=== PATIENT | male | born 1935 | race Hispanic/Latino ===

== ENCOUNTER 2020-09-16 17:01 | Observation (INO) | payer MEDICARE, OTHER ==
[~2020-09-16] VITALS: Ht 157.5 cm; Wt 43.1 kg
--- OUTSIDE RECORDS SUMMARY | 2020-09-16 17:27 | XMS REPORT | Continuity of Care Document ---
Author Author [facility] t Organization [facility] Address [address] [place] [address] Phone Unavailable Care Team Providers Care Scallop Dredger Name Role Phone Unavailable Unavailable Payers Payer Name Policy Type Policy Number Effective Date Expiration Date S ource Problems This patient has no known problems. Allergies, Adverse Reactions, Alerts Allergy Name Allergy Type Status Severity Reaction(s) Onset Date Inacti ve Date Treating Clinician Comments Source No Known Allergies DA Active U 2020-07-29 00:00:00 [facility] No Known Allergies DA Active U 2019-11-28 00:00:00 [facility] Medications This patient has no known medications. Procedures This patient has no known procedures. Results Test Description Test Time Test Comments Results Result Comments Source BASIC METABOLIC PANEL 2020-08-02 05:55:00 Test Item SODIUM (test code = NA) 140 mmol/L 136-145 N POTASSIUM (test code = K) 4.2 mmol/L 3.5-5.1 N CHLORIDE (test code = CL) 109.0 mmol/L 98-107 H CARBON DIOXIDE (test code = CO2) 22.0 mmol/L 21-32 N ANION GAP (test code = GAP) 13.2 10-20 N GLUCOSE (test code = GLU) 92 mg/dL 74-106 N BLOOD UREA NITROGEN (test code = BUN) 15 mg/dL 7-18 N GLOMERULAR FILTRATION RATE (test code = GFR) > 60 mL/min >=60 Estimated GFR by using Modified MDRD formula.Chronic kidney disease is defined as either kidney damageor GFR <60 mL/min/1.73 m2 for >3 months. CREATININE (test code = CREAT) 0.90 mg/dL 0.7-1.3 N BUN/CREATININE RATIO (test code = BUN/CREA) 16.7 10-20 N CALCIUM (test code = CA) 8.2 mg/dL 8.5-10.1 L BASIC METABOLIC [id number] 05:47:00* Test Item Value Reference Range Interpretation Comments SODIUM (test code = NA) 140 mmol/L 136-145 N POTASSIUM (test code = K) 4.2 mmol/L 3.5-5.1 N CHLORIDE (test code = CL) 109.0 mmol/L 98-107 H CARBON DIOXIDE (test code = CO2) mmol/L 21-32 ANION GAP (test code = GAP) 10-20 GLUCOSE (test code = GLU) mg/dL 74-106 BLOOD UREA NITROGEN (test code = BUN) mg/dL 7-18 GLOMERULAR FILTRATION RATE (test code = GFR) mL/min >=60 CREATININE (test code = CREAT) mg/dL 0.7-1.3 BUN/CREATININE RATIO (test code = BUN/CREA) 10-20 CALCIUM (test code = CA) mg/dL 8.5-10.1 CBC W/AUTO [id number] 05:33:00* Test Item Value Reference Range Interpretation Comments WHITE BLOOD CELL (test code = WBC) 7.0 K/mm3 4.5-12.5 N RED BLOOD CELL (test code = RBC) 3.49 mill/mm3 4.0-5.8 L HEMOGLOBIN (test code = HGB) 10.5 gram/dL 13.0-17.5 L HEMATOCRIT (test code = HCT) 33.0 % 42.0-52.0 L MEAN CELL VOLUME (test code = MCV) 94.6 fL 80-98 N MEAN CELL HGB (test code = MCH) 30.1 picogram 27.0-33.0 N MEAN CELL HGB CONCETRATION (test code = MCHC) 31.8 gram/dL 33.0-36. 0 L RED CELL DISTRIBUTION WIDTH (test code = RDW) 14.4 % 11.6-16. 2 N RED CELL DISTRIBUTION WIDTH SD (test code = RDW-SD) 49.7 fL 37 .0-51.0 N PLATELET COUNT (test code = PLT) 437 K/mm3 150-450 N MEAN PLATELET VOLUME (test code = MPV) 9.9 fL 6.7-11.0 N NEUTROPHIL % (test code = NT%) 66.8 % 39.0-69.0 N IMMATURE GRANULOCYTE % (test code = IG%) 0.3 % 0.0-5.0 N LYMPHOCYTE % (test code = LY%) 18.0 % 25.0-55.0 L MONOCYTE % (test code = MO%) 10.1 % 0.0-10.0 H EOSINOPHIL % (test code = EO%) 4.4 % 0.0-5.0 N BASOPHIL % (test code = BA%) 0.4 % 0.0-1.0 N NUCLEATED RBC % (test code = NRBC%) 0.0 % 0-0 N NEUTROPHIL # (test code = NT#) 4.67 K/mm3 1.8-7.7 N IMMATURE GRANULOCYTE # (test code = IG#) 0.02 x10 3/uL 0-0.03 N LYMPHOCYTE # (test code = LY#) 1.26 K/mm3 1.0-5.0 N MONOCYTE # (test code = MO#) 0.71 K/mm3 0-0.8 N EOSINOPHIL # (test code = EO#) 0.31 K/mm3 0.0-0.5 N BASOPHIL # (test code = BA#) 0.03 K/mm3 0.0-0.2 N NUCLEATED RBC # (test code = NRBC#) 0.00 K/mm3 0.0-0.1 N MANUAL DIFF REQUIRED (test code = MDIFF) NO [id number] 09:47:00* Test Item Value Reference Range Interpretation Comments POTASSIUM (test code = K) 5.1 mmol/L 3.5-5.1 N SPECIMEN COMMENTS: STAT PLEASEBASIC METABOLIC [id number] 08:51:00* Test Item Value Reference Range Interpretation Comments SODIUM (test code = NA) 143 mmol/L 136-145 N POTASSIUM (test code = K) 6.2 mmol/L 3.5-5.1 Alcira luu called to [id number] by PATT 07/30/20 0850Critical results verified and read back by Nurse? Y CHLORIDE (test code = CL) 112.0 mmol/L 98-107 H CARBON DIOXIDE (test code = CO2) 29.0 mmol/L 21-32 N ANION GAP (test code = GAP) 8.2 10-20 L GLUCOSE (test code = GLU) 89 mg/dL 74-106 N BLOOD UREA NITROGEN (test code = BUN) 24 mg/dL 7-18 H GLOMERULAR FILTRATION RATE (test code = GFR) > 60 mL/min >=60 Estimated GFR by using Modified MDRD formula.Chronic kidney disease is defined as either kidney damageor GFR <60 mL/min/1.73 m2 for >3 months. CREATININE (test code = CREAT) 1.10 mg/dL 0.7-1.3 N BUN/CREATININE RATIO (test code = BUN/CREA) 21.8 10-20 H CALCIUM (test code = CA) 7.9 mg/dL 8.5-10.1 L THYROID PROFILE [id number] 08:44:00* Test Item Value Reference Range Interpretation Comments T3 UPTAKE (test code = T3UP) 30.0 % 30.0-40.0 N T4 (THYROXINE) (test code = T4) 4.7 ug/dL 4.5-13.9 N T7 (FREE THYROXINE INDEX) (test code = T7) 1.41 FTI 1.3-5.1 N THYROID STIMULATING HORMONE (test code = TSH) 43.100 uIU/mL 0.36-3. 74 H TSH REFERENCE RANGES: EUTHYROID: 0.35 - 4.3 mIU/mL HYPO : > 5.5 mIU/mL HYPER : < 0.35 mIU/mL - CT CHEST W/O [id number] 08:22:00 Name: PABLO OTT [facility] : 1935 Age/S: 84 / M [address] [facility]: [id number] Loc: [place] [address] Phys: Galen Long MD Acct: [id number] Dis Date: Status: ADM IN PHONE #: [phone] Exam Date: 07/29/2020 2320 FAX #: [phone] Reason: PNEUMONIA EXAMS: CPT CODE: [id number] CT CHEST W/O CONTRAST 18002 REASON FOR EXAM: PNEUMONIA EXAM ORDER DATE: 07/29/2020 11:10 PM Ordering M.D.: Galen Maher MD PROCEDURE: - CT CHEST W/O CONTRAST Comparison:Chest x- ray earlier the same evening Axial CT images of the chest were obtained without IV contrast. Reconstructed sagittal and coronal images of the chest were provided for interpretation. Dose reduction techniques were applied. FINDINGS: The absence of IV contrast limits the sensitivity of this exam for detecting soft tissue pathology and differentiating atelectasis from consolidations. Visualized neck: Grossly normal Airways, Lungs and Pleura: Consolidative and groundglass airspace opacities are seen throughout the right lung and are also present in the lingula and in the dependent left lower lobe likely represent a multifocal pneumonia. There is also a small right-sided pleural effusion Heart, great vessels, pulmonary vessels, mediastinum: Atherosclerotic calcifications are seen throughout the thoracic aorta and throughout all 3 coronary arteries Lymph nodes: No axillary, internal mammary, or mediastinal adenopathy. Hilar lymph nodes are suboptimally evaluated in the absence of IV contrast Musculoskeletal/chest wall: There are degenerative changes in the spine Visualized upper abdomen: Small hiatal hernia is present IMPRESSION: PAGE 1 Signed Report (CONTINUED) Name: PABLO OTT [facility] : 1935 Age/S: 84 / M [address] [facility] Unit #: [id number] Loc: [place] [address] Phys: Galen Long MD Acct: [id number] Dis Date: Status: ADM IN PHONE #: [phone] Exam Date: 07/29/2020 5107 FAX #: [phone] Reason: PNEUMONIA EXAMS: CPT CODE: [id number] CT CHEST W/O CONTRAST 57968 <Continued> Findings a multifocal pneumonia involving both lungs, significantly worse on the right side. There is also a small right-sided pleural effusion. Location: [facility] at 0822 Reported and signed by: Alex Wallace MD CC: Galen Long Technologist:WELLINGTON LEVY RT(R)(CT) CTDI: DLP: Trnscb Date/Time: 07/30/2020 (0822) t.[email or web address].RR31 Orig Print D/T: S: 07/30/2020 (1719) PAGE 2 Signed Report COVID 19 Asymptomatic IH [id number] 05:43:00* Test Item Value Reference Range Interpretation Comments COVID 19 Asymptomatic IH AG (test code = COVNONPUIAG) NEGATIVE B-TYPE NATRIURETIC [id number] 22:35:00* Test Item Value Reference Range Interpretation Comments B-TYPE NATRIURETIC PEPTIDE (test code = BNP) 221.30 pgram/mL 0-100 H BASIC METABOLIC [id number] 22:34:00* Test Item Value Reference Range Interpretation Comments SODIUM (test code = NA) 142 mmol/L 136-145 N POTASSIUM (test code = K) 4.4 mmol/L 3.5-5.1 N CHLORIDE (test code = CL) 110.0 mmol/L 98-107 H CARBON DIOXIDE (test code = CO2) 31.0 mmol/L 21-32 N ANION GAP (test code = GAP) 5.4 10-20 L GLUCOSE (test code = GLU) 91 mg/dL 74-106 N BLOOD UREA NITROGEN (test code = BUN) 21 mg/dL 7-18 H GLOMERULAR FILTRATION RATE (test code = GFR) 48 mL/min >=60 Estimated GFR by using Modified MDRD formula.Chronic kidney disease is defined as either kidney damageor GFR <60 mL/min/1.73 m2 for >3 months. CREATININE (test code = CREAT) 1.40 mg/dL 0.7-1.3 H BUN/CREATININE RATIO (test code = BUN/CREA) 14.9 10-20 N CALCIUM (test code = CA) 7.9 mg/dL 8.5-10.1 L [id number] 22:34:00* Test Item Value Reference Range Interpretation Comments TROPONIN-I (test code = TROPI) <0.015 ng/mL 0-0.045 N BASIC METABOLIC [id number] 22:25:00* Test Item Value Reference Range Interpretation Comments SODIUM (test code = NA) 142 mmol/L 136-145 N POTASSIUM (test code = K) 4.4 mmol/L 3.5-5.1 N CHLORIDE (test code = CL) 110.0 mmol/L 98-107 H CARBON DIOXIDE (test code = CO2) mmol/L 21-32 ANION GAP (test code = GAP) 10-20 GLUCOSE (test code = GLU) mg/dL 74-106 BLOOD UREA NITROGEN (test code = BUN) mg/dL 7-18 GLOMERULAR FILTRATION RATE (test code = GFR) mL/min >=60 CREATININE (test code = CREAT) mg/dL 0.7-1.3 BUN/CREATININE RATIO (test code = BUN/CREA) 10-20 CALCIUM (test code = CA) mg/dL 8.5-10.1 [id number] 22:25:00* Test Item Value Reference Range Interpretation Comments TROPONIN-I (test code = TROPI) ng/mL 0-0.045 CBC W/O [id number] 22:06:00* Test Item Value Reference Range Interpretation Comments WHITE BLOOD CELL (test code = WBC) 7.9 K/mm3 4.5-12.5 N RED BLOOD CELL (test code = RBC) 3.12 mill/mm3 4.0-5.8 L HEMOGLOBIN (test code = HGB) 9.3 gram/dL 13.0-17.5 L HEMATOCRIT (test code = HCT) 30.0 % 42.0-52.0 L MEAN CELL VOLUME (test code = MCV) 96.2 fL 80-98 N MEAN CELL HGB (test code = MCH) 29.8 picogram 27.0-33.0 N MEAN CELL HGB CONCETRATION (test code = MCHC) 31.0 gram/dL 33.0-36. 0 L RED CELL DISTRIBUTION WIDTH (test code = RDW) 14.0 % 11.6-16. 2 N PLATELET COUNT (test code = PLT) 371 K/mm3 150-450 N MEAN PLATELET VOLUME (test code = MPV) 9.3 fL 6.7-11.0 N - XR CHEST 1 [id number] 21:44:00 FAX: Jareth Orozco MD [phone] [place]: [address]: ADM Name: PABLO BURROWS [facility] : [birth year] Age/S: 84/M [address] Unit #: [id number] Loc: [place], [place] [address] Phys: Jareth Orozco MD Acct: [id number] Dis Date: Status: ADM IN PHONE #: [phone] Exam Date: 07/29/20202132 FAX #: [phone] Reason: Shortness of Breath EXAMS: CPT CODE: [id number] XR CHEST 1 V 28745 EXAM: Chest x-ray, one view; INFORMATION: Shortness of breath, pneumonia; FINDINGS: There are infiltrative groundglass densities in the medial basilar portion of the right lower lobe. The remainder the lungs is clear; no effusions; no pneumothorax. Heart size within upper limits of normal. Aortic calcifications. IMPRESSION: Mild infiltrative changes in the right lower lobe. Location code: [facility] Electronically Signed by Jeramy Anguiano on 1 at 2143 Reported and signed by: Brent Anguiano M.D. CC: Jareth Orozco MD Technologist: Sarah Wei RT(R) Trnscrd Date/Time/By: 07/29/2020 (2143) : By: KamGRW Orig Print D/T: S: 07/29/2020 (2146) PAGE 1 Signed Report B-TYPE NATRIURETIC PEPTIDE 2020-07-29 13:59:00* Test Item Value Reference Range Interpretation Comments B-TYPE NATRIURETIC PEPTIDE (test code = BNP) 184.03 pgram/mL 0-100 H COMPREHENSIVE METABOLIC [id number] 13:55:00* Test Item Value Reference Range Interpretation Comments SODIUM (test code = NA) 140 mmol/L 136-145 N POTASSIUM (test code = K) 4.4 mmol/L 3.5-5.1 N CHLORIDE (test code = CL) 106.0 mmol/L 98-107 N CARBON DIOXIDE (test code = CO2) 28.0 mmol/L 21-32 N ANION GAP (test code = GAP) 10.4 10-20 N GLUCOSE (test code = GLU) 82 mg/dL 74-106 N BLOOD UREA NITROGEN (test code = BUN) 16 mg/dL 7-18 N GLOMERULAR FILTRATION RATE (test code = GFR) > 60 mL/min >=60 Estimated GFR by using Modified MDRD formula.Chronic kidney disease is defined as either kidney damageor GFR <60 mL/min/1.73 m2 for >3 months. CREATININE (test code = CREAT) 1.00 mg/dL 0.7-1.3 N BUN/CREATININE RATIO (test code = BUN/CREA) 16.0 10-20 N TOTAL PROTEIN (test code = PROT) 7.4 gram/dL 6.4-8.2 N ALBUMIN (test code = ALB) 2.8 g/dL 3.4-5.0 L GLOBULIN (test code = GLOB) 4.6 gram/dL 2.7-4.2 H ALBUMIN/GLOBULIN RATIO (test code = A/G) 0.6 0.75-1.50 L CALCIUM (test code = CA) 8.0 mg/dL 8.5-10.1 L BILIRUBIN TOTAL (test code = BILT) 0.40 mg/dL 0.0-1.0 N SGOT/AST (test code = AST) 24 IUnit/L 15-37 N SGPT/ALT (test code = ALT) 16 IUnit/L 12-78 N ALKALINE PHOSPHATASE TOTAL (test code = ALKP) 113 IUnit/L 45-117 N Note change in reference range due to change in reagent. THYROID PROFILE [id number] 13:55:00* Test Item Value Reference Range Interpretation Comments T3 UPTAKE (test code = T3UP) 29.0 % 30.0-40.0 L T4 (THYROXINE) (test code = T4) 5.6 ug/dL 4.5-13.9 N T7 (FREE THYROXINE INDEX) (test code = T7) 1.62 FTI 1.3-5.1 N THYROID STIMULATING HORMONE (test code = TSH) 42.000 uIU/mL 0.36-3. 74 H TSH REFERENCE RANGES: EUTHYROID: 0.35 - 4.3 mIU/mL HYPO : > 5.5 mIU/mL HYPER : < 0.35 mIU/mL CBC W/AUTO [id number] 13:05:00* Test Item Value Reference Range Interpretation Comments WHITE BLOOD CELL (test code = WBC) 6.5 K/mm3 4.5-12.5 N RED BLOOD CELL (test code = RBC) 3.51 mill/mm3 4.0-5.8 L HEMOGLOBIN (test code = HGB) 10.5 gram/dL 13.0-17.5 L HEMATOCRIT (test code = HCT) 33.8 % 42.0-52.0 L MEAN CELL VOLUME (test code = MCV) 96.3 fL 80-98 N MEAN CELL HGB (test code = MCH) 29.9 picogram 27.0-33.0 N MEAN CELL HGB CONCETRATION (test code = MCHC) 31.1 gram/dL 33.0-36. 0 L RED CELL DISTRIBUTION WIDTH (test code = RDW) 13.9 % 11.6-16. 2 N RED CELL DISTRIBUTION WIDTH SD (test code = RDW-SD) 49.0 fL 37 .0-51.0 N PLATELET COUNT (test code = PLT) 405 K/mm3 150-450 N MEAN PLATELET VOLUME (test code = MPV) 9.6 fL 6.7-11.0 N NEUTROPHIL % (test code = NT%) 70.3 % 39.0-69.0 H IMMATURE GRANULOCYTE % (test code = IG%) 0.2 % 0.0-5.0 N LYMPHOCYTE % (test code = LY%) 16.0 % 25.0-55.0 L MONOCYTE % (test code = MO%) 10.1 % 0.0-10.0 H EOSINOPHIL % (test code = EO%) 2.9 % 0.0-5.0 N BASOPHIL % (test code = BA%) 0.5 % 0.0-1.0 N NUCLEATED RBC % (test code = NRBC%) 0.0 % 0-0 N NEUTROPHIL # (test code = NT#) 4.58 K/mm3 1.8-7.7 N IMMATURE GRANULOCYTE # (test code = IG#) 0.01 x10 3/uL 0-0.03 N LYMPHOCYTE # (test code = LY#) 1.04 K/mm3 1.0-5.0 N MONOCYTE # (test code = MO#) 0.66 K/mm3 0-0.8 N EOSINOPHIL # (test code = EO#) 0.19 K/mm3 0.0-0.5 N BASOPHIL # (test code = BA#) 0.03 K/mm3 0.0-0.2 N NUCLEATED RBC # (test code = NRBC#) 0.00 K/mm3 0.0-0.1 N MANUAL DIFF REQUIRED (test code = MDIFF) NO - XR CHEST 2 [id number] 10:54:00 [place]: O St: REG Name: PABLO BURROWS [facility] : [birth year] Age/S: 84/M [address] [facility] Unit #: [id number] Loc: [place] [address] Phys: Cher Arevalo MD Acct: [id number] Dis Date: Status: REG CLI PHONE #: [phone] Exam Date: 07/29/2020 1022 FAX #: [phone] Reason: R06.02 EXAMS: CPT CODE: [id number] XR CHEST 2 V 52322 REASON FOR EXAM: R06.02 Exam Order Date: 07/29/2020 10:19 AM Ordering M.D.: Cher Oliva MD PROCEDURE: - XR CHEST 2 V COMPARISON: Chest x-ray November 28, 2019 FINDINGS/ IMPRESSION: There are patchy opacities in both lungs, worse on the right side, which may represent any combination of edema and pneumonia. Atelectatic changes in the lung bases cannot be excluded. The heart is p rominent relative to the thorax. The aorta is tortuous with atherosclero tic disease. There are degenerative changes in the spine and s houlders. Upper abdomen is radiographically unremarkable. Location: [facility] Electronically Signed by Alex Wallace MD on 020 at 1054 Reported and signed by: Alex Wallace MD CC: Technologi st: Bárbara Mclaughlin RT(R) Trnscrd Date/Time/By: 07/29/2020 (1054) : By: [email or web address] Orig Print D/T: S: 07/29/2020 (1413) PAGE 1 Signed Report - MRI BRAIN W/O [id number] 12:14:00 FAX: Galen Gupta [phone] [place]: St: ADM Name: PABLO BURROWS [facility] : [birth year] Age/S: 84/M [address] [facility] Unit #: [id number] Loc: [address] [place] [address] Phys: Galen Long MD Acct: [id number] Dis Date: Status: ADM IN PHONE #: [phone] Exam Date: 11/29/2019918 FAX #: [phone] Reason: AMS EXAMS: CPT CODE: [id number] MRI BRAIN W/O CONTRAST 02030 EXAM: MRI of the brain without con trast; INFORMATION: AMS, seizure; TECHNIQUE AND FIND INGS: Multiplanar, multisequence scans of the brain including diffus ion-weighted studies. The diffusion scans show no areas of restricted diff usion. Multiple foci of gliosis are seen in the periventricular and deep white matter; otherwise, unremarkable hess/white matter differentiati on. The gradient echo study shows no evidence of intra or extra-axial hemorrhage. No mass lesions or midline shift. Expected flow-voids are seen within vascular structures. Ventricles are symmetric and are slig htly prominent; prominent sulci and basilar cisterns. IMPR ESSION: 1. No evidence of acute ischemic lesions. 2. Chronic isc hemic white matter changes. 3. Mild atrophy. Location code: [facility] at 1214 Reported and signed by: Jorge Anguiano M.D. CC: Galen Long Technologist: Sindhu Dolan(R)( MR) Trnscrd Date/Time/By: 11/29/2019 (1214) : By: kia HANKINS Orig Print D/T: S: 11/29/2019 (5647) P AGE 2 Signed Report - CT HEAD/BRAIN W/O [id number] 13:08:00 Name: PABLO OTT [facility] : 1935 Age/S: 84 / M [address] [facility] Unit #: [id number] Loc: [place] [address] Phys: Sonia Gomez MD Acct: [id number] Dis Date: Status: REG ER PHONE #: [phone] Exam Date: 11/28/2019 1256 FAX #: [phone] Reason: confusion, possible seizure EXAMS: CPT CODE: [id number] CT HEAD/BRAIN W/O CONT 27374 HISTORY: confusion, possible seizure TECHNIQUE: Noncontrast 2.[address] of the head. Examination acquired within 24 hours of arrival. Automated exposure control for dose reduction. COMPARISON: None FINDINGS: No lacerations or contusions of the scalp or facial soft tissues. Calvarium and skull base are intact. No acute hemorrhage. No intracranial mass, mass effect, or midline shift. No effacement of the sulci or allison-white matter interface. There is diffuse cortical atrophy with ventriculomegaly. There are also microvascular ischemic changes of the white matter. There is a chronic appearing infarct in the white matter in the high right frontal lobe (3/48). Visualized paranasal sinuses are clear. Mastoid air cells and middle ear cavities are clear. There is cerumen in the external auditory canals. Orbital contents are unremarkable. IMPRESSION: No acute intracranial hemorrhage, mass effect, or large vascular territori al infarct. 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 Location: [facility] Electroni malissa Signed by Alex Wallace MD on 11/28/2019 at 1308 Rep orted and signed by: Alex Wallace MD PAGE 1 Amanda d Report (CONTINUED) Name: PABLO OTT [facility] : 1935 Age/S: 84 / M [address] Unit #: [id number] Loc: [place] [address] Phys: Sonia Gomez MD Acct: [id number] Dis Date: Status: REG ER PHONE #: [phone] Exam Date: 11/28/2019 1256 FAX #: [phone] Reason: confusion, possible seizure EXAMS: CPT CODE: [id number] CT HEAD/BRAIN W/O CONT 89676 <Continued> CC: Sonia Gomez MD Technologist:Kev Bryant RT(R),(MR),(CT); CTDI: DLP: Trnscb Date/Time: 11/28/2019 (1586) [id number].RR31 Orig Print D/T: S: 11/28/2019 (7272) PAGE 2 Signed Report PROCALCITONIN (PCT)2019-11-28 12:45:00* Test Item Value Reference Range Interpretation Comments PROCALCITONIN (PCT) (test code = PROCAL) < 0.05 ng/ml Concentration Interpretation (ng/mL) <0.51 Sepsis is not likely. Local bacterial infection is possible. (LOW RISK for progression to Sepsis) 0.51 - 2.00 Sepsis is possible, but other conditions are known to elevate PCT as well. (MODERATE RISK for progression to Sepsis) > 2.00 Sepsis is likely, unless other causes are known. (HIGH RISK for progression to Severe Sepsis or Septic Shock) 10.00 High likelihood of Severe Sepsis or Septic or higher Shock. *Increased PCT levels may not always be related to systemic bacterial infection.*Low PCT levels do not automatically exclude the presence of bacterial infection.*All results should be interpreted taking into account the patients history. LACTIC [id number] 12:26:00* Test Item Value Reference Range Interpretation Comments LACTIC ACID (test code = LACT) 1.3 mmol/L 0.4-1.9 N BASIC METABOLIC [id number] 12:26:00* Test Item Value Reference Range Interpretation Comments SODIUM (test code = NA) 138 mmol/L 136-145 N POTASSIUM (test code = K) 4.3 mmol/L 3.5-5.1 N CHLORIDE (test code = CL) 105.0 mmol/L 98-107 N CARBON DIOXIDE (test code = CO2) 26.0 mmol/L 21-32 N ANION GAP (test code = GAP) 11.3 10-20 N GLUCOSE (test code = GLU) 110 mg/dL 74-106 H BLOOD UREA NITROGEN (test code = BUN) 20 mg/dL 7-18 H GLOMERULAR FILTRATION RATE (test code = GFR) 58 mL/min >=60 Estimated GFR by using Modified MDRD formula.Chronic kidney disease is defined as either kidney damageor GFR <60 mL/min/1.73 m2 for >3 months. CREATININE (test code = CREAT) 1.20 mg/dL 0.7-1.3 N BUN/CREATININE RATIO (test code = BUN/CREA) 16.5 10-20 N CALCIUM (test code = CA) 8.4 mg/dL 8.5-10.1 L HEPATIC FUNCTION [id number] 12:26:00* Test Item Value Reference Range Interpretation Comments TOTAL PROTEIN (test code = PROT) 7.5 gram/dL 6.4-8.2 N ALBUMIN (test code = ALB) 3.5 g/dL 3.4-5.0 N GLOBULIN (test code = GLOB) 4.0 gram/dL 2.7-4.2 N ALBUMIN/GLOBULIN RATIO (test code = A/G) 0.9 0.75-1.50 N BILIRUBIN TOTAL (test code = BILT) 0.60 mg/dL 0.0-1.0 N BILIRUBIN DIRECT (test code = BILD) 0.14 mg/dL 0.0-0.20 N SGOT/AST (test code = AST) 22 IUnit/L 15-37 N SGPT/ALT (test code = ALT) 17 IUnit/L 12-78 N ALKALINE PHOSPHATASE TOTAL (test code = ALKP) 103 IUnit/L 45-117 N Note change in reference range due to change in reagent. [id number] 12:26:00* Test Item Value Reference Range Interpretation Comments TROPONIN-I (test code = TROPI) <0.015 ng/mL 0-0.045 N BASIC METABOLIC [id number] 12:17:00* Test Item Value Reference Range Interpretation Comments SODIUM (test code = NA) 138 mmol/L 136-145 N POTASSIUM (test code = K) 4.3 mmol/L 3.5-5.1 N CHLORIDE (test code = CL) 105.0 mmol/L 98-107 N CARBON DIOXIDE (test code = CO2) mmol/L 21-32 ANION GAP (test code = GAP) 10-20 GLUCOSE (test code = GLU) mg/dL 74-106 BLOOD UREA NITROGEN (test code = BUN) mg/dL 7-18 GLOMERULAR FILTRATION RATE (test code = GFR) mL/min >=60 CREATININE (test code = CREAT) mg/dL 0.7-1.3 BUN/CREATININE RATIO (test code = BUN/CREA) 10-20 CALCIUM (test code = CA) mg/dL 8.5-10.1 HEPATIC FUNCTION [id number] 12:17:00* Test Item Value Reference Range Interpretation Comments TOTAL PROTEIN (test code = PROT) gram/dL 6.4-8.2 ALBUMIN (test code = ALB) g/dL 3.4-5.0 GLOBULIN (test code = GLOB) gram/dL 2.7-4.2 ALBUMIN/GLOBULIN RATIO (test code = A/G) 0.75-1.50 BILIRUBIN TOTAL (test code = BILT) mg/dL 0.0-1.0 BILIRUBIN DIRECT (test code = BILD) mg/dL 0.0-0.20 SGOT/AST (test code = AST) IUnit/L 15-37 SGPT/ALT (test code = ALT) IUnit/L 12-78 ALKALINE PHOSPHATASE TOTAL (test code = ALKP) IUnit/L 45-117 [id number] 12:17:00* Test Item Value Reference Range Interpretation Comments TROPONIN-I (test code = TROPI) ng/mL 0-0.045 PROTHROMBIN [id number] 12:11:00* Test Item Value Reference Range Interpretation Comments PROTHROMBIN TIME PATIENT (test code = PTP) 11.7 seconds 9.0-14.0 N INTERNATIONAL NORMAL RATIO (test code = INR) 1.0 0.8-1.2 N The therapeutic range for oral anticoagulant therapy formost indications is an international normalized ratio (INR)of between 2.0 and 3.0. The recommended therapeutic INRrange for various clinical situations is listed below: Clinical Situation INR range Pulmonary e mbolism treatment (2.0-3.0)Venous thrombosis treatmentVenous thrombosis prophylaxis (high risk surgery)Prevention of systemic embolism from: Acute myocardial infarction Valvular heart disease Atrial fibrillation Mechanical prosthetic heart valves (2.5-3.5) IS PATIENT ON ANTICOAGULANTS? NTHROMBOPLASTIN TIME [id number] 12:11:00* Test Item Value Reference Range Interpretation Comments THROMBOPLASTIN TIME PARTIAL (test code = PTT) 35.6 seconds 25.0-36. 5 N IS PATIENT ON ANTICOAGULANTS? NURINALYSIS [id number] 12:07:00* Test Item Value Reference Range Interpretation Comments UA COLOR (test code = COLU) YELLOW YELLOW UA APPEARANCE (test code = APPU) CLEAR CLEAR UA GLUCOSE DIPSTICK (test code = DGLUU) NEGATIVE mg/dL NEGATIVE UA BILIRUBIN DIPSTICK (test code = BILU) NEGATIVE mg/dL NEGATIVE UA KETONE DIPSTICK (test code = KETU) NEGATIVE mg/dL NEGATIVE UA SPECIFIC GRAVITY (test code = SGU) 1.018 1.001-1.035 UA BLOOD DIPSTICK (test code = ERICA) 0.06 mg/dL (1+) mg/dL NEGATIVE A UA PH DIPSTICK (test code = MARCELO) 6.5 5.0-8.0 UA PROTEIN DIPSTICK (test code = PROU) 10 (Trace) mg/dL NEGATIVE A UA UROBILINIOGEN DIPSTICK (test code = URO) Normal mg/dL NEGATIVE UA NITRITE DIPSTICK (test code = ANDREA) NEGATIVE NEGATIVE UA LEUKOCYTE ESTERASE W REFLEX (test code = LEUUR) NEGATIVE Sujey/uL NEGATIVE UA WBC (test code = WBCU) 0-5 per HPF 0-5 UA RBC (test code = RBCU) 21-50 #/HPF 0-5 UA EPITHELIAL CELLS (test code = EPIU) FEW per HPF FEW UA BACTERIA (test code = BACU) NONE SEEN #/HPF NONE UA HYALINE CAST (test code = HYALU) 11-20 #/LPF 0-5 A UA MUCUS (test code = MUCU) FEW #/LPF FEW Urine Source? Clean CatchCBC W/AUTO [id number] 12:05:00* Test Item Value Reference Range Interpretation Comments WHITE BLOOD CELL (test code = WBC) 8.3 K/mm3 4.5-12.5 N RED BLOOD CELL (test code = RBC) 3.63 mill/mm3 4.0-5.8 L HEMOGLOBIN (test code = HGB) 11.4 gram/dL 13.0-17.5 L HEMATOCRIT (test code = HCT) 34.7 % 42.0-52.0 L MEAN CELL VOLUME (test code = MCV) 95.6 fL 80-98 N MEAN CELL HGB (test code = MCH) 31.4 picogram 27.0-33.0 N MEAN CELL HGB CONCETRATION (test code = MCHC) 32.9 gram/dL 33.0-36. 0 L RED CELL DISTRIBUTION WIDTH (test code = RDW) 13.9 % 11.6-16. 2 N RED CELL DISTRIBUTION WIDTH SD (test code = RDW-SD) 48.8 fL 37 .0-51.0 N PLATELET COUNT (test code = PLT) 257 K/mm3 150-450 N MEAN PLATELET VOLUME (test code = MPV) 9.8 fL 6.7-11.0 N NEUTROPHIL % (test code = NT%) 78.0 % 39.0-69.0 H IMMATURE GRANULOCYTE % (test code = IG%) 0.4 % 0.0-5.0 N LYMPHOCYTE % (test code = LY%) 12.4 % 25.0-55.0 L MONOCYTE % (test code = MO%) 8.2 % 0.0-10.0 N EOSINOPHIL % (test code = EO%) 0.8 % 0.0-5.0 N BASOPHIL % (test code = BA%) 0.2 % 0.0-1.0 N NUCLEATED RBC % (test code = NRBC%) 0.0 % 0-0 N NEUTROPHIL # (test code = NT#) 6.43 K/mm3 1.8-7.7 N IMMATURE GRANULOCYTE # (test code = IG#) 0.03 x10 3/uL 0-0.03 N LYMPHOCYTE # (test code = LY#) 1.02 K/mm3 1.0-5.0 N MONOCYTE # (test code = MO#) 0.68 K/mm3 0-0.8 N EOSINOPHIL # (test code = EO#) 0.07 K/mm3 0.0-0.5 N BASOPHIL # (test code = BA#) 0.02 K/mm3 0.0-0.2 N NUCLEATED RBC # (test code = NRBC#) 0.00 K/mm3 0.0-0.1 N URINALYSIS [id number] 12:02:00* Test Item Value Reference Range Interpretation Comments UA COLOR (test code = COLU) YELLOW YELLOW UA APPEARANCE (test code = APPU) CLEAR CLEAR UA GLUCOSE DIPSTICK (test code = DGLUU) NEGATIVE mg/dL NEGATIVE UA BILIRUBIN DIPSTICK (test code = BILU) NEGATIVE mg/dL NEGATIVE UA KETONE DIPSTICK (test code = KETU) NEGATIVE mg/dL NEGATIVE UA SPECIFIC GRAVITY (test code = SGU) 1.018 1.001-1.035 UA BLOOD DIPSTICK (test code = ERICA) 0.06 mg/dL (1+) mg/dL NEGATIVE A UA PH DIPSTICK (test code = MARCELO) 6.5 5.0-8.0 UA PROTEIN DIPSTICK (test code = PROU) 10 (Trace) mg/dL NEGATIVE A UA UROBILINIOGEN DIPSTICK (test code = URO) Normal mg/dL NEGATIVE UA NITRITE DIPSTICK (test code = ANDREA) NEGATIVE NEGATIVE UA LEUKOCYTE ESTERASE W REFLEX (test code = LEUUR) NEGATIVE Sujey/uL NEGATIVE UA WBC (test code = WBCU) per HPF 0-5 UA RBC (test code = RBCU) per HPF 0-5 UA EPITHELIAL CELLS (test code = EPIU) per HPF Few UA BACTERIA (test code = BACU) per HPF NONE Urine Source? Clean Catch- XR CHEST 1 [id number] 11:19:00 FAX: Sonia Gomez MD [phone] [place]: St: REG Name: PABLO BURROWS [facility] : 09/30/19 36 Age/S: 84/M [address] [facility] Unit #: [id number] Loc: [place] [address] Phys: Sonia Gomez MD Acct: [id number] Dis Date: Status: REG ER PHONE #: [phone] Exam Date: 11/28/2019 1052 FAX #: [phone] Reason: CODE SEPSIS EXAMS: CPT CODE: [id number] XR CHEST 1 V [id number] REASON FOR EXAM: CODE SEPSIS Exam Order Date: 11/28/2019 10:32 AM Ordering M.D.: Sonia Gomez MD PROCEDURE: - XR CHEST 1 V COM PARISON: None FINDINGS: The lungs are clear other than mil d subsegmental atelectasis in the left lung base. There is no pleural eff usion or pneumothorax. Pulmonary vascularity is within normal limits. Cardiomediastinal silhouette is normal in size for technique. The mediastinal contours are within normal limits. There are degener ative changes in the spine. The visualized upper abdomen is within normal limits. IMPRESSION: No acute cardiopulmo nary process. Location: [facility] at 1119 Reported and sig megan by: Alex Wallace MD CC: Sonia Gomez MD Technologist: RT NADIA(R) Trnscrd Date/Time/By: 11/28/2019 (1119) : By: [email or web address] Orig Print D/T: S: 11/28/2019 (1122) PAGE 1 Signed Report
[2020-09-16 17:43] LABS: BASOPHILS % 0.2 % (0.0-1.0); HEMOGLOBIN 11.3 g/dL (14.0-18.0); LYMPHOCYTES # (AUTO) 0.6 (1.0-3.2); LYMPHOCYTES % 11.5 % (18.0-39.1); MEAN CORPUSCULAR HEMOGLOBIN 29.4 pg (28-32); MEAN CORPUSCULAR HGB CONC 31.4 g/dL (31-35); MEAN CORPUSCULAR VOLUME 93.8 fL (81-99); MONOCYTES # (AUTO) 0.2 (0.2-0.8); NEUTROPHILS # (AUTO) 4.6 (2.1-6.9); NEUTROPHILS % 83.8 % (38.7-80.0); PLATELET COUNT 243 x10e3/uL (140-360); RED BLOOD COUNT 3.84 x10e6/uL (4.3-5.7); RED CELL DISTRIBUTION WIDTH 17.2 % (11.7-14.4)
--- NOTE | 2020-09-16 17:48 | Emergency Department Note ---
History of Present Illnes History of Present Illness Chief Complaint: Neurological History of Present Illness This is a 84 year old male Chief Complaint Comment Brought in by EMS per family calling ambulance d/t pt having AMS, weakness. Pt does have HX parkinsons, CHF, HTN, dementia. Per EMS, on scene BP was hypostenive, in 60's systolic. After 500ml NS, pt BP currently 118/60. Pt verbalizes no complaints. Pt has his niece at bedside. 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 Arrival Mode: [facility] Treatment EMERGING TECHNOLOGIES DIRECTOR: IV Additional Treatment EMERGING TECHNOLOGIES DIRECTOR: 500 cc ns Client Integration Manager Required: No Onset (how long ago): hour(s) (1) Location: Generalized Quality: AMS Radiation: Reports non-radiation Severity: moderate Onset quality: sudden Duration (how long): hour(s) (1) Timing of current episode: unable to specify Progression: resolved Chronicity: new Context: Denies recent illness, Denies recent surgery Relieving factors: none Exacerbating factors: none Associated symptoms: Reports denies other symptoms Treatments prior to arrival: none (BOBBI JACK MD) Past Medical/Family History Physician Review I have reviewed the patient's past medical and family history. Any updates have been documented here. (BOBBI JACK MD) Past Medical History Recent Fever: No Clinical Suspicion of Infectio: No New/Unexplained Change in Ment: No Past Medical History: Hypertension, CHF Other Medical History: parkinson's, dementia (BOBBI JACK MD) Social History Smoking Cessation: Never Smoker Counseling Performed: No Alcohol Use: None Any Illegal Drug Use: No Physically hurt or threatened: No (BOBBI JACK MD) Other Any Pre-Existing Lines (PICC,: No (BOBBI JACK MD) Review of Systems Review of Systems Constitutional: Reports no symptoms EENTM: Reports no symptoms Cardiovascular: Reports no symptoms Respiratory: Reports no symptoms Gastrointestinal: Reports no symptoms Genitourinary: Reports no symptoms Musculoskeletal: Reports no symptoms Integumentary: Reports no symptoms Neurological: Reports no symptoms Psychological: Reports no symptoms Endocrine: Reports no symptoms Hematological/Lymphatic: Reports no symptoms (BOBBI JACK MD) Physical Exam Related Data Allergies: Coded Allergies: No Known Allergies (Unverified , 09/16/20) Triage Vital Signs Vital Signs Date Time Temp Pulse Resp B/P (MAP) Pulse Ox O2 Delivery O2 Flow Rate FiO2 09/16/20 17:13 97.8 74 16 118/60 95 Room Air Vital signs reviewed: Yes (BOBBI JACK MD) Physical Exam CONSTITUTIONAL Constitutional: Present cachectic; Absent well-developed, Absent well-nourished HENT HENT: Present normocephalic, Present atraumatic, Present oropharynx clear/moist, Present nose normal HENT L/R: Present left ext ear normal, Present right ext ear normal EYES Eyes: Reports PERRL, Reports conjunctivae normal NECK Neck: Present ROM normal PULMONARY Pulmonary: Present effort normal, Present breath sounds normal CARDIOVASCULAR Cardiovascular: Present regular rhythm, Present heart sounds normal, Present capillary refill normal, Present normal rate GASTROINTESTINAL Abdominal: Present soft, Present nontender, Present bowel sounds normal GENITOURINARY Genitourinary: Present exam deferred SKIN Skin: Present warm, Present dry MUSCULOSKELETAL Musculoskeletal: Present ROM normal NEUROLOGICAL Neurological: Present alert, Present oriented x 3, Present no gross motor or sensory deficits PSYCHOLOGICAL Psychological: Present mood/affect normal, Present judgement normal (BOBBI JACK MD) Results Laboratory Laboratory Laboratory Tests Test 09/16/20 17:13 (BOBBI JACK MD) Procedures 12 Lead ECG Interpretation ECG Interpretation : Client Integration Manager: Interpreted by ED physician Date: Sep 16, 2020 Rhythm: sinus rhythm Rate: normal QRS axis: normal Conduction: incomplete RBBB ST segments normal: Yes T waves normal: Yes Clinical Impression: abnormal ECG (BOBBI JACK MD) Assessment & Plan Medical Decision Making JUAN CARLOS 84-year-old male past medical history significant for severe heart failure presents to the emergency department for episode of altered mentation. He has since returned to baseline. I discussed the patient with Dr. Hernandez who is his sheet metal erector and Dr. Elise conveys that he is not a candidate for any invasive therapy such as PCI. EKG shows no signs of ST elevation myocardial infarction. Laboratory workup and chest x-ray ordered. I discussed the patient with Dr. Meneses and will call him back when laboratory results have returned. Family discussing DNR status. Handed off to Dr. Jasso Pending lab results. Call and admit to [facility] after labs result (BOBBI JACK MD) MDM i had a long conversation with pt's keeley who is the power of trial attorney, she has spoke with family and they have decided to make pt a dnr and to get him placed on hospice, she states no heroic measures, keep him comfortable. (BYRON JASSO MD) Assessment & Plan Final Impression: (1) Heart failure (BOBBI JACK MD) Final Impression: (1) Heart failure (2) Renal failure (3) Elevated troponin (4) End of life care (BYRON JASSO MD) Depart Disposition: ADMITTED Last Vital Signs Date Time Temp Pulse Resp B/P (MAP) Pulse Ox O2 Delivery O2 Flow Rate FiO2 09/16/20 17:13 97.8 74 16 118/60 95 Room Air (BOBBI JACK MD) BOBBI JACK MD Sep 16, 2020 17:48 BYRON JASSO MD Sep 16, 2020 18:38
[2020-09-16 17:54] LABS: ALBUMIN 2.9 g/dL (3.5-5.0); ALBUMIN/GLOBULIN RATIO 0.7 (0.8-2.0); ANION GAP 20.4 mmol/L (8-16); CALCIUM 8.5 mg/dL (8.4-10.2); CREATININE, SERUM 4.35 mg/dL (0.72-1.25); POTASSIUM 4.4 mmol/L (3.5-5.1)
[2020-09-16] MEDS ORDERED: SODIUM CHLORIDE 0.9% 500ML 500 ML IV ONE (18:15)
[2020-09-16] MEDS ORDERED: SODIUM CHLORIDE 0.9% 500ML 500 ML ONE (18:17)
--- NOTE | 2020-09-16 18:28 | Diagnostic Imaging Report ---
EXAMINATION: CHEST SINGLE (PORTABLE) INDICATION: CP COMPARISON: None FINDINGS: AP view TUBES and LINES: None. . LUNGS/PLEURA: Lungs are well inflated. There are bilateral patchy consolidations likely representing multifocal pneumonia.. There is obscuration of the bilateral costophrenic angles which could be due to effusions and or atelectasis. HEART AND MEDIASTINUM: The cardiomediastinal silhouette is unremarkable. BONES AND SOFT TISSUES: There are degenerative changes in the shoulder joints and thoracic spine. Soft tissues are unremarkable. UPPER ABDOMEN: No free air under the diaphragm. IMPRESSION: 1. Bilateral patchy consolidations likely representing multifocal pneumonia. 2. Obscuration of the bilateral costophrenic angles could be due to small effusions and or atelectasis Signed by: Dez Caceres MD on 09/16/2020 6:25 PM
[2020-09-16] MEDS: SODIUM CHLORIDE 0.9% 1000ML 1,000 ML IV SCH (18:44)
[2020-09-16] MEDS ORDERED: CEFTRIAXONE SOD 1 GM/NS 50 ML 50 ML IV ONE (18:45)
[2020-09-16] MEDS ORDERED: SODIUM CHLORIDE 0.9% 1000ML 1,000 ML ONE (18:51)
[2020-09-16] MEDS ORDERED: MORPHINE SULFATE INJ 4 MG/ML INJ 1ML IV PRN (19:45)
[2020-09-16] MEDS ORDERED: ONDANSETRON HCL INJ 2MG/ML 2ML 2 MG/ML VIAL IV PRN ×2 (19:45→21:15)
--- OUTSIDE RECORDS SUMMARY | 2020-09-16 19:56 | XMS REPORT | Continuity of Care Document ---
Author Author [facility] t Organization [facility] Address [address] [place] [address] Phone Unavailable Care Team Providers Care Motor And Generator Brush Maker Name Role Phone Navin Dominguez Attphyrakesh Unavailable Payers Payer Name Policy Type Policy Number Effective Date Expiration Date S ource Problems This patient has no known problems. Allergies, Adverse Reactions, Alerts Allergy Name Allergy Type Status Severity Reaction(s) Onset Date Inacti ve Date Treating Clinician Comments Source No Known Allergies DA Active U 2020-07-29 00:00:00 [facility] No Known Allergies DA Active U 2019-11-28 00:00:00 [facility] Medications This patient has no known medications. Procedures This patient has no known procedures. Results Test Description Test Time Test Comments Results Result Comments Source CHEST SINGLE (PORTABLE) 2020-09-16 18:22:[address] [facility] 1935 Sex: M [place] [address] Patient Name: PABLO OTT MR #: [id number] : 1935 Age/Sex: 84/M Req #: [id number] Adm Physician: Ordered by: Bobbi Dominguez MD Report #: [id number] Location: ER Room/Bed: Procedure: [id number] DX/CHEST SINGLE (PORTABLE) Exam Date: 09/16/20 Exam Time: 174 REPORT STATUS: Signed EXAMINATION: CHEST SINGLE (PORTABLE) INDICATION: CP COMPARISON: None FINDINGS: AP view TUBES and LINES: None. . LUNGS/PLEURA: Lungs are well inflated. There are bilateral patchy consolidations likely representing multifocal pneumonia.. There is obscuration of the bilateral costophrenic angles which could be due to effusions and or atelectasis. HEART AND MEDIASTINUM: The cardiomediastinal silhouette is unremarkable. BONES AND SOFT TISSUES: There are degenerative changes in the shoulder joints and thoracic spine. Soft tissues are unremarkable. UPPER ABDOMEN: No free air under the diaphragm. IMPRESSION: 1. Bilateral patchy consolidations likely representing multifocal pneumonia. 2. Obscuration of the bilateral costophrenic angles could be due to small effusions and or atelectasis Signed by: Dez Diego MD on 09/16/2020 6:25 PM Dictated By: DEZ DIEGO MD 24 Transcribed By: SUJEY on 09/16/201824 COPY TO: BOBBI DOMINGUEZ MD BASIC METABOLIC PANEL 2020-08-02 05:55:00 Test Item [...] CA) 8.2 mg/dL 8.5-10.1 L BASIC METABOLIC [id number] 05:47:00* Test Item Value Reference Range Interpretation [...] code = CA) mg/dL 8.5-10.1 CBC W/AUTO [id number] 05:33:00* Test Item Value Reference Range Interpretation [...] DIFF REQUIRED (test code = MDIFF) NO [id number] 09:47:00* Test Item Value Reference Range Interpretation Comments POTASSIUM (test code = K) 5.1 mmol/L 3.5-5.1 N SPECIMEN COMMENTS: STAT PLEASEBASIC METABOLIC [id number] 08:51:00* Test Item Value Reference Range Interpretation Comments SODIUM (test code = NA) 143 mmol/L 136-145 N POTASSIUM (test code = K) 6.2 mmol/L 3.5-5.1 Re sults called to [id number] by V.LAB.WJC 07/30/20 0850Critical results verified and read back [...] CA) 7.9 mg/dL 8.5-10.1 L THYROID PROFILE [id number] 08:44:00* Test Item Value Reference Range Interpretation [...] < 0.35 mIU/mL - CT CHEST W/O [id number] 08:22:00 Name: PABLO OTT [facility] : 1935 Age/S: 84 / M [address] [facility] Unit #: [id number] Loc: [place] [address] Phys: Galen Long MD Acct: [id number] Dis Date: Status: ADM IN PHONE #: [phone] Exam Date: 07/29/20202325 FAX #: [phone] Reason: PNEUMONIA EXAMS: CPT CODE: [id number] CT CHEST W/O CONTRAST 02654 REASON FOR EXAM: PNEUMONIA EXAM ORDER DATE: [...] 1 Signed Report (CONTINUED) Name: PABLO OTT [facility] : 1935 Age/S: 84 / M [address] [facility] Unit #: [id number] Loc: [place] [address] Phys: Galen Long MD Acct: [id number] Dis Date: Status: ADM IN PHONE #: [phone] Exam Date: 07/29/20202325 FAX #: [phone] Reason: PNEUMONIA EXAMS: CPT CODE: [id number] CT CHEST W/O CONTRAST 04123 <Continued> Findings a multifocal pneumonia involving both lungs, significantly worse on the right side. There is also a small right-sided pleural effusion. Location: [facility] at 0822 Reported and signed by: Alex Wallace MD CC: Galen Long Technologist:WELLINGTON LEVY RT(R)(CT) CTDI: DLP: Trnscb Date/Time: 07/30/2020 (821) [email or web address] Orig Print D/T: S: 07/30/2020 (824) PAGE 2 Signed Report COVID 19 Asymptomatic IH [id number] 05:43:00* Test Item Value Reference Range Interpretation Comments COVID 19 Asymptomatic IH AG (test code = COVNONPUIAG) NEGATIVE B-TYPE NATRIURETIC [id number] 22:35:00* Test Item Value Reference Range Interpretation Comments B-TYPE NATRIURETIC PEPTIDE (test code = BNP) 221.30 pgram/mL 0-100 H BASIC METABOLIC [id number] 22:34:00* Test Item Value Reference Range Interpretation [...] code = CA) 7.9 mg/dL 8.5-10.1 L [id number] 22:34:00* Test Item Value Reference Range Interpretation Comments TROPONIN-I (test code = TROPI) <0.015 ng/mL 0-0.045 N BASIC METABOLIC [id number] 22:25:00* Test Item Value Reference Range Interpretation [...] CALCIUM (test code = CA) mg/dL 8.5-10.1 [id number] 22:25:00* Test Item Value Reference Range Interpretation Comments TROPONIN-I (test code = TROPI) ng/mL 0-0.045 CBC W/O [id number] 22:06:00* Test Item Value Reference Range Interpretation [...] fL 6.7-11.0 N - XR CHEST 1 [id number] 21:44:00 FAX: Jareth Orozco MD [phone] [place]: St: ADM Name: PABLO BURROWS [facility] : [birth year] Age/S: 84/M [address] [facility] Unit #: [id number] Loc: [place] [address] Phys: Jareth Orozco MD Acct: [id number] Dis Date: Status: ADM IN PHONE #: [phone] Exam Date: 07/29/20202132 FAX #: [phone] Reason: Shortness of Breath EXAMS: CPT CODE: [id number] XR CHEST 1 V 54205 EXAM: Chest x-ray, one view; INFORMATION: Shortness of breath, pneumonia; FINDINGS: There are infiltrative groundglass densities in the medial basilar portion of the right lower lobe. The remainder the lungs is clear; no effusions; no pneumothorax. Heart size within upper limits of normal. Aortic calcifications. IMPRESSION: Mild infiltrative changes in the right lower lobe. Location code: [facility] Electronically Signed by Jeramy Anguiano on at 2144 Reported and signed by: Brent Anguiano M.D. CC: Jareth Orozco MD Technologist: Sarah HIGHTOWER(R) Trnscrd Date/Time/By: 07/29/2020 (2143) : By: KamGRW Orig Print D/T: S: 07/29/2020 (2) PAGE 1 Signed Report B-TYPE NATRIURETIC PEPTIDE 2020-07-29 13:59:00* Test Item Value Reference Range Interpretation Comments B-TYPE NATRIURETIC PEPTIDE (test code = BNP) 184.03 pgram/mL 0-100 H COMPREHENSIVE METABOLIC [id number] 13:55:00* Test Item Value Reference Range Interpretation [...] due to change in reagent. THYROID PROFILE [id number] 13:55:00* Test Item Value Reference Range Interpretation [...] HYPER : < 0.35 mIU/mL CBC W/AUTO [id number] 13:05:00* Test Item Value Reference Range Interpretation [...] = MDIFF) NO - XR CHEST 2 [id number] 10:54:00 [place]: O St: REG Name: PABLO BURROWS [facility] : [birth year] Age/S: 84/M [address] [facility] Unit #: [id number] Loc: [place] [address] Phys: Cher Arevalo MD Acct: [id number] Dis Date: Status: REG CLI PHONE #: [phone] Exam Date: 07/29/2020 1020 FAX #: [phone] Reason: R06.02 EXAMS: CPT CODE: [id number] XR CHEST 2 V 98576 REASON FOR EXAM: R06.02 Exam Order Date: 07/29/2020 10:19 AM Ordering M.DManas: Cher Oliva MD PROCEDURE: - XR CHEST [...] houlders. Upper abdomen is radiographically unremarkable. Location: [facility] Electronically Signed by Alex Wallace MD on 020 at 1054 Reported and signed by: Alex Wallace MD CC: Technologi st: Bárbara Mclaughlin RT(R) Trnscrd Date/Time/By: 07/29/2020 (7548) : By: [email or web address] Orig Print D/T: S: 07/29/2020 (7804) PAGE 1 Signed Report - MRI BRAIN W/O [id number] 12:14:00 FAX: Galen Gupta [phone] [place]: St: ADM Name: PALBO BURROWS [facility] : [birth year] Age/S: 84/M [address] [facility] Unit #: [id number] Loc: [address] [place] [address] Phys: Galen Long MD Acct: [id number] Dis Date: Status: ADM IN PHONE #: [phone] Exam Date: 11/29/2019918 FAX #: [phone] Reason: AMS EXAMS: CPT CODE: [id number] MRI BRAIN W/O CONTRAST 39047 EXAM: MRI of the brain without con [...] matter changes. 3. Mild atrophy. Location code: [facility] at 1214 Reported and signed by: Jorge Anguiano M.D. CC: Galen Long Technologist: Sindhu Dolan(R)( MR) Trnscrd Date/Time/By: 11/29/2019 (121) : By: kia [email or web address] Orig Print D/T: S: 11/29/2019 (4957) P AGE 1 Signed Report - CT HEAD/BRAIN W/O [id number] 13:08:00 Name: PABLO OTT [facility] : 1935 Age/S: 84 / M [address] [facility] Unit #: [id number] Loc: [place] [address] Phys: Sonia Gomez MD Acct: [id number] Dis Date: Status: REG ER PHONE #: [phone] Exam Date: 11/28/2019 1256 FAX #: [phone] Reason: confusion, possible seizure EXAMS: CPT CODE: [id number] CT HEAD/BRAIN W/O CONT 79962 HISTORY: confusion, possible seizure TECHNIQUE: Noncontrast 2.5 [...] lobe negrito ear to be chronic. Location: [facility] Page leonardo Signed by Alex Wallace MD on 11/28/2019 at 1308 Rep orted and signed by: Alex Wallace MD PAGE 1 Amanda d Report (CONTINUED) Name: PABLO OTT [facility] : 1935 Age/S: 84 / M [address] [facility] Unit #: [id number] Loc: [place] [address] Phys: Sonia Gomez MD Acct: [id number] Dis Date: Status: REG ER PHONE #: [phone] Exam Date: 11/28/2019 1259 FAX #: [phone] Reason: confusion, possible seizure EXAMS: CPT CODE: [id number] CT HEAD/BRAIN W/O CONT 77773 <Continued> CC: Sonia Gomez MD Technologist:Kev Bryant RT(R),(MR),(CT); CTDI: DLP: Trnscb Date/Time: 11/28/2019 (1308) [email or web address] Orig Print D/T: S: 11/28/2019 (7111) PAGE 2 Signed Report PROCALCITONIN (PCT)2019-11-28 12:45:00* [...] taking into account the patients history. LACTIC [id number] 12:26:00* Test Item Value Reference Range Interpretation Comments LACTIC ACID (test code = LACT) 1.3 mmol/L 0.4-1.9 N BASIC METABOLIC [id number] 12:26:00* Test Item Value Reference Range Interpretation [...] CA) 8.4 mg/dL 8.5-10.1 L HEPATIC FUNCTION [id number] 12:26:00* Test Item Value Reference Range Interpretation [...] reference range due to change in reagent. [id number] 12:26:00* Test Item Value Reference Range Interpretation Comments TROPONIN-I (test code = TROPI) <0.015 ng/mL 0-0.045 N BASIC METABOLIC [id number] 12:17:00* Test Item Value Reference Range Interpretation [...] code = CA) mg/dL 8.5-10.1 HEPATIC FUNCTION [id number] 12:17:00* Test Item Value Reference Range Interpretation [...] TOTAL (test code = ALKP) IUnit/L 45-117 [id number] 12:17:00* Test Item Value Reference Range Interpretation Comments TROPONIN-I (test code = TROPI) ng/mL 0-0.045 PROTHROMBIN [id number] 12:11:00* Test Item Value Reference Range Interpretation [...] (2.5-3.5) IS PATIENT ON ANTICOAGULANTS? NTHROMBOPLASTIN TIME [id number] 12:11:00* Test Item Value Reference Range Interpretation Comments THROMBOPLASTIN TIME PARTIAL (test code = PTT) 35.6 seconds 25.0-36. 5 N IS PATIENT ON ANTICOAGULANTS? NURINALYSIS [id number] 12:07:00* Test Item Value Reference Range Interpretation [...] #/LPF FEW Urine Source? Clean CatchCBC W/AUTO [id number] 12:05:00* Test Item Value Reference Range Interpretation [...] = NRBC#) 0.00 K/mm3 0.0-0.1 N URINALYSIS [id number] 12:02:00* Test Item Value Reference Range Interpretation [...] Urine Source? Clean Catch- XR CHEST 1 [id number] 11:19:00 FAX: Sonia Gomez MD [phone] [place]: St: REG Name: PABLO BURROWS [facility] : [birth year] Age/S: 84/M [address] [facility] Unit #: [id number] Loc: [place] [address] Phys: Sonia Gomez MD Acct: [id number] Dis Date: Status: REG ER PHONE #: [phone] Exam Date: 11/28/2019 1052 FAX #: [phone] Reason: CODE SEPSIS EXAMS: CPT CODE: [id number] XR CHEST 1 V 87956 REASON FOR EXAM: CODE SEPSIS Exam Order [...] IMPRESSION: No acute cardiopulmo nary process. Location: [facility] at 1119 Reported and sig megan by: Alex Wallace MD CC: Sonia Gomez MD Technologist: RT NADIA(R) Trnscrd Date/Time/By: 11/28/2019 (3997) : By: [email or web address] Orig Print D/T: S: 11/28/2019 (1121) PAGE 1 Signed Report
[2020-09-16 21:15] VITALS: BP 90/52
[2020-09-16] MEDS ORDERED: BENZONATATE 100 MG CAP PO PRN (21:15)
[2020-09-16] MEDS ORDERED: DOCUSATE SODIUM 100 MG CAP PO PRN (21:15)
[2020-09-16] MEDS ORDERED: MELATONIN 5 MG TABLET PO PRN (21:15)
[2020-09-16] MEDS ORDERED: ALBUTEROL/IPRATROPIUM 3 ML NEB NEB PRN (21:15)
[2020-09-16] MEDS ORDERED: POLYETHYLENE GLYCOL 3350 17 GM PACK PO PRN (21:15)
[2020-09-16] MEDS ORDERED: DEXTROSE 50% SYRINGE 50 ML IV PRN (21:15)
[2020-09-16] MEDS ORDERED: ACETAMINOPHEN 325 MG TAB PO PRN (21:15)
[2020-09-16] MEDS ORDERED: SIMETHICONE 80 MG CHEW PO PRN (21:15)
[2020-09-16 21:20] VITALS: BP 90/52
--- NOTE | 2020-09-16 21:20 | NUR ---
Received the patient from ER in a stretcher .admission assessment done.aaox2.spo2 shows 80%.non breather mask with 15 litre o2 started.family member @ bed side.oriented to the unit.call light within reach.
--- NOTE | 2020-09-17 01:20 | NUR ---
Family member at bed side.urine specimen to be collected.patient is weak to ambulate.
[2020-09-17 02:00] VITALS: BP 82/54
[2020-09-17] MEDS ORDERED: LORAZEPAM INJ 2 MG/ML VIAL IV ONE ×2 (02:15→11:30)
--- NOTE | 2020-09-17 02:29 | NUR ---
Patient s agitated .trying to pull out tele box and oxygen.bp noted 82/54 mmof hg.notified to .received new orders inj.ativan 0.5 mg iv given.keep monitor the pt.
[2020-09-17] MEDS ORDERED: ARICEPT5 MG PO (03:31)
[2020-09-17] MEDS ORDERED: ASPIRIN81 MG PO (03:31)
[2020-09-17] MEDS ORDERED: ATORVASTATIN CA20 MG PO (03:31)
[2020-09-17] MEDS ORDERED: PREDNISONE5 MG PO (03:31)
[2020-09-17 05:36] VITALS: BP 102/61
[2020-09-17 05:37] LABS: BASOPHILS % 0.6 % (0.0-1.0); HEMATOCRIT 34.4 % (38.2-49.6); HEMOGLOBIN 10.8 g/dL (14.0-18.0); LYMPHOCYTES # (AUTO) 0.3 (1.0-3.2); LYMPHOCYTES % 8.1 % (18.0-39.1); MEAN CORPUSCULAR HEMOGLOBIN 29.2 pg (28-32); MEAN CORPUSCULAR HGB CONC 31.4 g/dL (31-35); MONOCYTES # (AUTO) 0.1 (0.2-0.8); MONOCYTES % 3.7 % (4.4-11.3); NEUTROPHILS # (AUTO) 2.8 (2.1-6.9); NEUTROPHILS % 86.4 % (38.7-80.0); PLATELET COUNT 191 x10e3/uL (140-360); RED CELL DISTRIBUTION WIDTH 17.3 % (11.7-14.4)
[2020-09-17 06:03] LABS: ANION GAP 19.6 mmol/L (8-16); CALCIUM 7.9 mg/dL (8.4-10.2); CREATININE, SERUM 3.96 mg/dL (0.72-1.25); MAGNESIUM 2.5 MG/DL (1.3-2.1); PHOSPHORUS 5.7 MG/DL (2.3-4.7); POTASSIUM 3.6 mmol/L (3.5-5.1)
--- NOTE | 2020-09-17 06:19 | NUR ---
Blood sugar is 40. 50% dextrose iv administered.keep monitor the patient.
--- NOTE | 2020-09-17 06:33 | NUR ---
Left the message in answering service regarding consultation with .
--- NOTE | 2020-09-17 07:12 | NUR ---
Bed side shift report given to oncoming RN.stable condition.
[2020-09-17] MEDS ORDERED: PANTOPRAZOLE SOD 40 MG TABEC PO SCH (07:30)
--- NOTE | 2020-09-17 08:38 | NUR ---
SPOKE WITH GRANDDAUGHTER CARL SHE STATES THAT THEY HAVE BEEN TRYING TO GET HIM ON HOSPICE FOR A WHILE, BUT WERE NOT ABLE TO, STATES WANTS TO RETURN HOME WITH HIM. GAVE OPTIONS SHE CHOSE [facility] FILED CHOICE IN CHART AND CONTACTED COMPANY TO CONTACT FAMILY.
[2020-09-17 08:49] VITALS: BP 90/66
[2020-09-17 08:57] VITALS: BP 90/66
--- NOTE | 2020-09-17 09:34 | Consultation ---
DATE OF CONSULTATION: 09/17/2020 Cardiology Consultation Note REASON FOR CONSULT: CHF, hypotension, CAD, elevated troponins. CHIEF COMPLAINT: Unable to obtain due to altered mental status. HISTORY OF PRESENT ILLNESS: An 84-year-old man with history of multiple medical problems including chronic systolic CHF, EF less than 30%, diffuse severe CAD not amenable to revascularization, CKD stage 3 to 4, malnutrition, dysphagia who presents from home with altered mental status and low blood pressures. Of note, the patient's family has been considering hospice for several weeks given his worsening clinical condition. REVIEW OF SYSTEMS: Unable to obtain due to altered mental status. PAST MEDICAL HISTORY: As per HPI. SOCIAL HISTORY: Does not smoke, drink, or abuse drugs. FAMILY HISTORY: Noncontributory. OUTPATIENT MEDICATIONS: Reviewed. ALLERGIES: NO KNOWN ALLERGIES. PHYSICAL EXAMINATION: VITAL SIGNS: Temperature afebrile, pulse 86, respiratory rate 16, blood pressure 90/66, saturating 100% on non-rebreather. GENERAL: Elderly frail, no acute distress. Chronically ill-appearing. CARDIOVASCULAR: Regular rate and rhythm. No murmurs, rubs, or gallops. LUNGS: Bilateral crackles. Decreased breath sounds at the bases. ABDOMEN: Soft, nontender, nondistended. NEURO AND PSYCH: Disoriented. INPATIENT MEDICATIONS: Reviewed. TELEMETRY DATA: Reviewed, shows normal sinus rhythm. LABORATORY DATA: Reviewed. Notable for troponin of 1.8. BNP of 2500. GFR less than 15. Hemoglobin 10.8, white count is 3. Coronavirus negative. Glucose 40. IMAGING DATA: Reviewed. Chest x-ray shows bilateral multifocal pneumonia. ASSESSMENT AND PLAN: 1. Multifocal pneumonia. 2. Acute on chronic systolic congestive heart failure exacerbation. 3. Elevated troponin likely due to non ST elevation myocardial infarction. 4. Hypertension. 5. Hypoglycemia. 6. Acute kidney injury and chronic kidney disease. PLAN: Discussed extensively with the family. The patient has been made DNR, which is reasonable. Family would like to be set up with home hospice. They understand the prognosis is very poor given multiple medical problems and his age and frailty. Continue comfort measures and antibiotics. Okay to hold all cardiovascular medications for now. The patient is not a candidate for any sort of cardiovascular intervention or any aggressive therapies given his frailty and clinical status. Family understands this. Thank you for this consult. We will continue to follow. MD SHELBY Urena/JARVIS /[id number]
[2020-09-17] MEDS: SODIUM CHLORIDE 0.9% 1000ML 1,000 ML IV SCH (10:47)
[2020-09-17 13:25] VITALS: BP 86/46
--- NOTE | 2020-09-17 16:53 | NUR ---
Pt discharged home with under [facility]. Family at the bedside and is aware of transfer. 0 s/s of acute distress noted at time of discharge.
--- NOTE | 2020-09-17 17:26 | Progress Note ---
DATE: 09/17/2020 Medicine Progress Note SUBJECTIVE: I had a family meeting at bedside around 2:55 p.m. with nurseFelicita present throughout the entire conversation. At the bedside, there was medical power of bankruptcy attorney paperwork, which I read and had a rn hedis who says Octavia makes medical decisions on his behalf. The patient's children were all present at bedside including all children, one daughter and three boys who were present at bedside in which I discussed overall plan of care and what their wishes were. After discussing with them, they know that their father is very sick and ill and they know that his quality of life is very poor. In fact, they were working on hospice before they came to the hospital, but they were very unsuccessful. At this time, they know that he is very ill and sick. He has been made DNR/DNI. They have signed appropriate paperwork for hospice services. They agree with hospice. I answered all their questions at bedside. The patient will be discharged home with hospice as per family's wishes including the medical xcpzy-lm-ocdgewte, Octavia, who is present at bedside. All paperwork has been placed in the chart. NurseFelicita was present throughout the entire conversation. MD TILA Paul/JARVIS /[id number]
[2020-09-17] MEDS ORDERED: CEFTRIAXONE SOD 1 GM/NS 50 ML 50 ML IV SCH (18:00)
--- NOTE | 2020-09-17 18:06 | History and Physical ---
CHIEF COMPLAINT: Altered mental status, shortness of breath, hospice. The patient's family was working on hospice. HISTORY OF PRESENT ILLNESS: This is an 84-year-old male, multiple comorbidities, has end-stage heart failure, severe Alzheimer's dementia, hyperlipidemia, CKD stage 3 or 4, came in from the family, as he had some underlying altered mental status, worsening condition, and decreased responsiveness. The patient was admitted by the ER physician, as the family has been considering and working on hospice for the last several weeks, but has been unsuccessful. They have known that Mr. Alicea has declined over the last several months. I spoke with the granddaughter, who is at bedside, Octavia and got the history from her. Currently, no family at bedside. Apparently yesterday, the patient was doing relatively okay, but then suddenly became unresponsive and became in worsening condition. The patient was then admitted by the ER physician, in which during the ER conversation with the physician down in the ER and the family, they have agreed to DNR/DNI. In fact, they voiced to the ER physician that they were working on getting hospice, but have been unsuccessful. The patient now was admitted for hospice evaluation and to transfer eventually to hospice services as per family's wishes. REVIEW OF SYSTEMS: Unable to obtain the patient's altered mental status. HOME MEDICATIONS: Aspirin, Lipitor, Aricept, and prednisone. PAST MEDICAL HISTORY: Severe Alzheimer's dementia, severe heart failure, hyperlipidemia, medically debilitated, and severe protein-calorie malnutrition. PAST SURGICAL HISTORY: Unknown. FAMILY HISTORY: Unknown. SOCIAL HISTORY: Lives with family. Unknown about drugs, alcohol, or any smoking history. PHYSICAL EXAMINATION: VITAL SIGNS: Temperature is 97.7, pulse 85 respiratory rate is 16, blood pressure is 86/46, and pulse ox 97%. He is on non-rebreather 50 L. GENERAL: He is not responsive. He is at his baseline. He is on a non-rebreather. PULMONARY: Non-rebreather. He has some crackles appreciated. No rhonchi or expiratory wheezing appreciated. CARDIOVASCULAR: Positive S1 and S2. No murmurs, rubs, or gallops appreciated. ABDOMEN: Soft, nondistended, and nontender to palpation. Bowel sounds present. MUSCULOSKELETAL: Unable to assess. NEUROLOGIC: Unable to assess. SKIN: Intact. Warm to touch. He has severe protein-calorie malnutrition on evaluation. LABORATORY FINDINGS: Show white count 3.3, hemoglobin 10, hematocrit is 34, and platelets of 191. Chemistry; sodium 145, potassium is 3.6 chloride 103, bicarb 26, anion gap of 19, BUN is 75, creatinine is 3.96, glucose 73, and calcium is 7.9. Troponins were elevated. BNP 2510. Albumin was 2.9. Serology; coronavirus nondetected. IMAGING STUDIES: Chest x-ray shows some bilateral patchy consolidation, likely representing some form of multifocal pneumonia. Obscuration of the bilateral costophrenic angles could be due to small effusion and/or atelectasis. IMPRESSION: 1. He has epuyg-vc-xhfsjdw systolic heart failure. 2. Hec-SI-usdqlahcr myocardial infarction with elevated troponin. 3. Hypertension. 4. Acute kidney injury on chronic kidney disease. 5. Questionable pneumonia. PLAN: At this time, family has discussed with the ER physician last night about DNR and hospice. I went and spoke with Octavia, who is apparently the medical power of corporate attorney, in which I have abstracted that information and also retrieved documentation from the family, which is currently placed in the chart. After further discussion including the family, who is currently at bedside and the medical power of corporate attorney paperwork, they want Mr. Alicea to go on hospice services. Hospice company ready to talk to the family and they have agreed to go home with hospice. His prognosis is very poor. His overall quality of life is very poor. At this time, we are waiting for transport to go home with hospice services as per family's wishes. Once that has been approved and arranged, the patient can go home with hospice services. He will continue with DNR status as per family's wishes and once approved, the patient can be discharged. Once again, I spoke with the family at bedside including Octavia, who is a medical power of corporate attorney with nurses present throughout the entire conversation. MD TILA Paul/AJRVIS /[id number]
== END 2020-09-17 16:53 | disposition hospice, home (50) ==
LOC: ER 17:25 → ERHOLD 19:36 → MED/SURG3 20:51
PROVIDERS: ADMIT Internal Medicine; ATTEND Internal Medicine
DX: I13.0 Hypertensive heart and chronic kidney disease with heart failure and stage 1 through stage 4 chronic kidney disease, or unspecified chronic kidney disease (principal); G30.9 Alzheimer's disease, unspecified; F02.81 Dementia in other diseases classified elsewhere, unspecified severity, with behavioral disturbance; F05 Delirium due to known physiological condition; N18.4 Chronic kidney disease, stage 4 (severe); I50.84 End stage heart failure; E78.5 Hyperlipidemia, unspecified; I50.23 Acute on chronic systolic (congestive) heart failure; N17.9 Acute kidney failure, unspecified; I21.4 Non-ST elevation (NSTEMI) myocardial infarction; J18.9 Pneumonia, unspecified organism; I25.10 Atherosclerotic heart disease of native coronary artery without angina pectoris; E43 Unspecified severe protein-calorie malnutrition; Z68.1 Body mass index [BMI] 19.9 or less, adult; Z66 Do not resuscitate; E16.2 Hypoglycemia, unspecified; Z20.828 Contact with and (suspected) exposure to other viral communicable diseases
CPT/HCPCS: 36415 ×2; 71045; 80048; 80053; 83735; 83880; 84100; 84484; 85025 ×2; 93005; 99284; G0378 ×2; J0696; J2060; J7030 ×2; J7040; U0002